=== PATIENT | male | born 1980 | race Caucasian/White ===

== ENCOUNTER 2023-02-02 10:32 | Emergency (ER) | payer MEDICAID ==
[2023-02-02] MEDS ORDERED: Sodium Chloride 0.9% 10 ML Syringe FLUSH PRN (10:36)
[2023-02-02] MEDS ORDERED: Ondansetron 4 MG/2 ML SDV IV ONE (10:47)
[2023-02-02] MEDS ORDERED: HYDROmorphone 0.5 MG/0.5 ML Syringe IVPUSH ONE (10:48)
[2023-02-02] MEDS ORDERED: Sodium Chloride 0.9% 1,000 ML IV ONE (10:48)
[2023-02-02] MEDS ORDERED: Ketorolac 30 MG/ML SDV IVPUSH ONE (10:48)
[2023-02-02 11:49] LABS: ESTIMATED GFR 109 mL/min (>=60)
[2023-02-02 12:50] LABS: ANION GAP 16.2 mEq/L (7-13); CHLORIDE,CL 102 mmol/L (98-107); SODIUM,NA 138 mmol/L (136-145)
[2023-02-02] MEDS ORDERED: Lactulose Soln 10 GM/15 ML 30 ML UD Cup PO ONE (12:58)
== END 2023-02-02 13:18 | disposition home or self-care (01) ==
LOC: DL.ED 10:32
DX: K59.09 Other constipation (principal); M54.9 Dorsalgia, unspecified; R74.8 Abnormal levels of other serum enzymes
CPT/HCPCS: 36415; 74176; 76705; 80053; 81003; 82150; 83690; 85025; 86140; 96361; 96374; 96375; 99284; 99285; A9270; J1170; J1885; J2405; J3360; J7030; J3490

== ENCOUNTER 2024-11-02 10:08 | Emergency (ER) | payer SELFPAY ==
[2024-11-02] MEDS: Iopamidol 612 MG/ML 100 ML Bottle IVPUSH ONE (10:54)
[2024-11-02] MEDS: Ondansetron 4 MG/2 ML SDV IVPUSH ONE (11:03)
[2024-11-02] MEDS: Sodium Chloride 0.9% 1,000 ML IV SCH (11:03)
[2024-11-02] MEDS: HYDROmorphone 0.5 MG/0.5 ML Syringe IVPUSH ONE (11:03)
[2024-11-02 11:05] LABS: BASOPHILS PERCENT AUTO 1.4 % (0.0-1.0); EOSINOPHILS PERCENT AUTO 1.2 % (1.0-3.0); HEMATOCRIT 49.5 % (40.0-54.0); HEMOGLOBIN 17.6 g/dL (14.0-18.0); LYMPHOCYTES PERCENT AUTO 28.9 % (20.5-50.1); MEAN CORPUSCULAR HEMOGLOBIN 32.7 pg (27.0-34.0); MEAN CORPUSCULAR HGB CONC 35.6 g/dL (33.0-35.0); MEAN CORPUSCULAR VOLUME 91.8 fL (80-100); MONOCYTES PERCENT AUTO 10.8 % (2-8); NEUTROPHILS PERCENT AUTO 57.7 % (42.2-75.2); PLATELET COUNT,PLT 310 10^3/uL (150-450); RED BLOOD CELL COUNT 5.39 10^6/uL (4.6-6.2); WHITE BLOOD CELL COUNT,WBC 8.6 10^3/uL (5.0-10.0)
[2024-11-02 11:22] LABS: INR 0.9 (0.9-1.2); PROTHROMBIN TIME 9.7 SEC (9.0-12.0)
[2024-11-02 11:31] LABS: A/G RATIO 0.9; ALBUMIN 4.1 g/dL (3.4-5.0); BILIRUBIN DIRECT 0.4 mg/dL (0.0-0.2); BILIRUBIN INDIRECT 0.4; BILIRUBIN TOTAL 0.8 mg/dL (0.2-1.0); CALCIUM 9.6 mg/dL (8.5-10.1); CREATININE 0.88 mg/dL (0.70-1.30); EST CRCL DRUG DOSING (CG) 119.8 mL/min; PROTEIN TOTAL,TP 8.8 g/dL (6.4-8.2)
== END 2024-11-02 12:08 | disposition home or self-care (01) ==
LOC: DL.ED 10:08
DX: R10.13 Epigastric pain (principal); R94.5 Abnormal results of liver function studies; F17.210 Nicotine dependence, cigarettes, uncomplicated; Z79.899 Other long term (current) drug therapy; Z86.16 Personal history of COVID-19
CPT/HCPCS: 36415; 74177; 80048; 80076; 82150; 83690; 85025; 85610; 96361; 96374; 96375; 99285; J2405; J7030; Q9967; 99283